=== PATIENT | male | born 1990 | race Two or more races ===

== ENCOUNTER 2017-01-01 02:32 | Emergency (ER) | payer SELFPAY ==
[~2017-01-01] VITALS: Ht 180.3 cm; Wt 77.1 kg
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
--- NOTE | 2017-01-01 03:00 | NUR ---
DR. LOCKWOOD AT BEDSIDE FOR EVAL.
[2017-01-01] MEDS ORDERED: TDAP [DIPH/PERTUSSIS/TET] 0.5 ML VIAL IM ONE ×2 (03:04→03:30)
--- NOTE | 2017-01-01 03:29 | NUR ---
Patient discharged to home in stable condition. Written and verbal after care instructions given. Patient verbalizes understanding of instruction. ambulatory with a steady gait
[2017-01-01 03:30] VITALS: BP 114/71
== END 2017-01-01 03:31 | disposition home or self-care (01) ==
LOC: ER 02:33
DX: S00.33XA Contusion of nose, initial encounter (principal); S00.91XA Abrasion of unspecified part of head, initial encounter; H11.32 Conjunctival hemorrhage, left eye; Y04.8XXA Assault by other bodily force, initial encounter; Y93.89 Activity, other specified; Y92.29 Other specified public building as the place of occurrence of the external cause; Y99.8 Other external cause status
CPT/HCPCS: 90715; A4606; Z7610